=== PATIENT | male | born 1960 | race Caucasian/White ===

== ENCOUNTER 2018-04-02 06:48 | Inpatient (IN) | payer BC ==
[~2018-04-02] VITALS: Ht 185.4 cm; Wt 120.2 kg
[~2018-04-02 06:48] MED LIST: AMOX250C PO; ASCO10007 PO; CALC600T12 PO; CHOL20006 PO; COLE3.75 PO; FENO134C PO; GABA600T2 PO; GLIM4TAB2 PO; LIRA0.6P2 SUBCUT; METF10004 PO; MULT-585 PO; MULT1CAP34 PO; NIAC10002 PO; TOPI50TA PO; VALS1TAB54 PO; VASCEPA PO
[2018-04-02 08:00] VITALS: BP 130/72
[2018-04-02] MEDS ORDERED: DULA1.5P SQ (08:32)
[2018-04-02] MEDS ORDERED: AMOX500C2 PO (08:32)
[2018-04-02] MEDS ORDERED: ASPI-1169 PO (08:32)
[2018-04-02] MEDS ORDERED: CHOL50004 PO (08:32)
[2018-04-02] MEDS ORDERED: DAPA1TAB3 PO (08:32)
[2018-04-02] MEDS ORDERED: EVOL140S SQ (08:32)
[2018-04-02] MEDS ORDERED: GABA800T2 PO (08:32)
[2018-04-02] MEDS ORDERED: LOSA100T15 PO (08:32)
[2018-04-02] MEDS ORDERED: PIOG15TA8 PO (08:32)
[2018-04-02] MEDS ORDERED: IV NS 0.9% 1,000 ML IV PRN (10:22)
[2018-04-02] MEDS ORDERED: ONDANSETRON HCL/PF 4 MG/2 ML VIAL IVP PRN ×2 (10:30→16:30)
[2018-04-02] MEDS ORDERED: MISCELLANEOUS MED 1 EA EA XX ONE (10:30)
[2018-04-02] MEDS ORDERED: ACETAMINOPHEN 325 MG TABLET PO PRN (10:30)
[2018-04-02] MEDS ORDERED: ACETAMINOPHEN 650 MG/20.3 ML UDC NG ONE (10:30)
[2018-04-02] MEDS ORDERED: MAGNESIUM HYDROXIDE 30 ML UDC PO PRN (10:30)
[2018-04-02] MEDS ORDERED: MAG HYDROX/AL HYDROX/SIMETH 30 ML UDC PO PRN (10:30)
[2018-04-02] MEDS ORDERED: CELECOXIB 100 MG CAPSULE PO ONE (10:58)
[2018-04-02] MEDS ORDERED: oxyCODONE HCL SR 10MG TAB.SR.12H PO ONE (10:58)
[2018-04-02] MEDS ORDERED: MORPHINE SULFATE INJ 4 MG/ML DISP.SYRIN IV PRN (11:30)
[2018-04-02] MEDS ORDERED: ACETAMINOPHEN 650 MG/20.3 ML UDC PO ONE (11:30)
[2018-04-02 11:45] LABS: CALCIUM, SERUM 7.8 mg/dL (8.5-10.1); CREATININE 0.7 mg/dL (0.6-1.3); POTASSIUM 3.5 mmol/L (3.5-5.1)
[2018-04-02] MEDS ORDERED: ENOXAPARIN SODIUM 40 MG/0.4 ML DISP.SYRIN SQ SCH (13:15)
[2018-04-02] MEDS ORDERED: BACITRACIN 50000 UNITS/VIAL ONE (14:04)
[2018-04-02] MEDS ORDERED: DEXTROSE 50%-WATER 50 ML DISP.SYRIN IV PRN (14:30)
[2018-04-02] MEDS ORDERED: TRANEXAMIC ACID 3,000 MG in SODIUM CHLORIDE IRRIG SOLUTION 70 ML IR ONE (14:30)
[2018-04-02] MEDS ORDERED: HYDROMORPHONE INJ 2 MG/ML DISP.SYRIN ONE ×2 (15:11→16:14)
[2018-04-02] MEDS ORDERED: SEVOFLURANE 250 ML BOTTLE IH ONE (15:11)
[2018-04-02] MEDS ORDERED: BUPIVACAINE 0.5 % PF 150 MG/30 ML VIAL ONE (15:39)
[2018-04-02] MEDS ORDERED: HYDROCODONE/APAP 5/325MG 1 EACH TABLET PO PRN (16:30)
[2018-04-02] MEDS ORDERED: HYDROMORPHONE 1 MG/1 ML DISP.SYRIN IV PRN (16:30)
[2018-04-02 17:00] VITALS: BP 129/86
[2018-04-02] MEDS ORDERED: DOCUSATE SODIUM 250 MG CAPSULE PO SCH (17:00)
[2018-04-02] MEDS ORDERED: GABAPENTIN 400 MG CAPSULE PO SCH (17:00)
[2018-04-02] MEDS: BLOOD SUGAR DIAGNOSTIC 1 EACH STRIP IN SCH ×2 (17:58→21:52)
[2018-04-02] MEDS: INSULIN REGULAR, HUMAN 100 UNIT/ML 3 ML VIAL SQ PRN ×2 (18:01→22:05)
[2018-04-02] MEDS ORDERED: HYDROMORPHONE 1 MG/1 ML DISP.SYRIN SQ ONE (18:12)
[2018-04-02] MEDS ORDERED: diphenhydrAMINE HCL 25 MG CAPSULE PO PRN (18:30)
[2018-04-02] MEDS ORDERED: oxyCODONE IR immediate release 5 MG PO PRN ×2 (18:30)
[2018-04-02] MEDS ORDERED: CLONIDINE HCL 0.1 MG TABLET PO PRN (18:30)
[2018-04-02] MEDS: IV LR 1000 ML 1,000 ML IV PRN (19:30)
[2018-04-02 20:00] VITALS: BP 139/82
[2018-04-02] MEDS: FAMOTIDINE (20 MG) 20 MG TABLET PO SCH (21:51)
[2018-04-02] MEDS ORDERED: BISACODYL SUPP (10 MG) 10 MG/SUPP.RECT SUPP.RECT RC PRN (22:00)
[2018-04-02] MEDS ORDERED: TOPIRAMATE 25 MG TABLET PO SCH (22:00)
[2018-04-02] MEDS ORDERED: SENNOSIDES 8.6 MG TABLET PO SCH ×2 (22:00)
[2018-04-02] MEDS ORDERED: ZOLPIDEM TARTRATE 5 MG TABLET PO PRN (22:00)
[2018-04-02] MEDS ORDERED: GABAPENTIN 300 MG CAPSULE PO SCH (22:00)
[2018-04-02] MEDS: HYDROMORPHONE 1 MG/1 ML DISP.SYRIN SQ PRN (22:12)
[2018-04-02] MEDS: ANCEF 1 GM/50 ML D5W IV SCH ×2 (22:46)
[2018-04-03] VITALS: BP 120/75
[2018-04-03 05:00] VITALS: BP 116/64
[2018-04-03] MEDS: ANCEF 1 GM/50 ML D5W IV SCH ×2 (05:55)
[2018-04-03] MEDS: IV LR 1000 ML 1,000 ML IV PRN (06:02)
[2018-04-03] MEDS: BLOOD SUGAR DIAGNOSTIC 1 EACH STRIP IN SCH ×2 (06:26→11:41)
[2018-04-03] MEDS: INSULIN REGULAR, HUMAN 100 UNIT/ML 3 ML VIAL SQ PRN ×2 (06:28→11:59)
[2018-04-03 07:11] LABS: BASOPHILS % (AUTO) 0.3 % (0.0-2.0); EOSINOPHILS % (AUTO) 0.1 % (0.0-6.0); HEMATOCRIT 46 % (39-51); HEMOGLOBIN 14.6 g/dL (13.5-17.5); LYMPHOCYTES # (AUTO) 1.5 /CMM (0.8-4.8); LYMPHOCYTES % (AUTO) 12.9 % (20.0-44.0); MEAN CORPUSCULAR HEMOGLOBIN 30 PG (26.0-33.0); MEAN CORPUSCULAR HGB CONC 32 g/dl (31.0-36.0); MEAN CORPUSCULAR VOLUME 93 fL (80-96); MONOCYTES % (AUTO) 8.2 % (2.0-12.0); NEUTROPHILS # (AUTO) 9.2 /CMM (1.8-8.9); NEUTROPHILS % (AUTO) 78.5 % (43.0-81.0); PLATELET COUNT (AUTO) 209 /CMM (150-450); RED BLOOD CELL COUNT(AUTO) 4.96 MIL/uL (4.5-6.0); WHITE BLOOD COUNT (AUTO) 11.8 K/uL (4.3-11.0)
[2018-04-03 07:24] LABS: CALCIUM, SERUM 7.6 mg/dL (8.5-10.1); CREATININE 1.1 mg/dL (0.6-1.3); MAGNESIUM 2.2 mg/dL (1.8-2.4); PHOSPHORUS 3.2 mg/dL (2.5-4.9); POTASSIUM 3.9 mmol/L (3.5-5.1)
[2018-04-03 08:00] VITALS: BP 109/62
[2018-04-03] MEDS: FAMOTIDINE (20 MG) 20 MG TABLET PO SCH (08:21)
[2018-04-03 08:23] VITALS: BP 109/62
[2018-04-03] MEDS ORDERED: TOPIRAMATE 25 MG TABLET PO SCH (09:00)
[2018-04-03] MEDS ORDERED: DOCUSATE SODIUM 100 MG CAPSULE PO SCH (09:00)
[2018-04-03] MEDS ORDERED: ASPIRIN 325 MG TABLET PO SCH (09:00)
[2018-04-03] MEDS ORDERED: ASCORBIC ACID 500 MG TABLET PO SCH (09:00)
[2018-04-03] MEDS ORDERED: LOSARTAN POTASSIUM 50 MG TABLET PO SCH ×2 (09:00)
[2018-04-03] MEDS ORDERED: GABAPENTIN 400 MG CAPSULE PO SCH (09:00)
[2018-04-03] MEDS ORDERED: MULTIVITAMINS,THERAGRAN 1 UDTAB TABLET PO SCH (09:00)
[2018-04-03] MEDS ORDERED: ASPIRIN 81 MG TAB.CHEW PO SCH (09:00)
[2018-04-03] MEDS ORDERED: CHOLECALCIFEROL (VITAMIN D 3) 400 UNIT TABLET PO SCH (09:00)
[2018-04-03] MEDS ORDERED: PANTOPRAZOLE 40 MG VIAL IV SCH (09:00)
[2018-04-03] MEDS: HYDROMORPHONE 1 MG/1 ML DISP.SYRIN SQ PRN (13:46)
== END 2018-04-03 14:45 | disposition home health service (06) | DRG 468 ==
LOC: DS 06:48 → MED 06:58
PROVIDERS: ADMIT Specialist; ATTEND Specialist
DX: T84.84XA Pain due to internal orthopedic prosthetic devices, implants and grafts, initial encounter (principal); I10 Essential (primary) hypertension; K21.9 Gastro-esophageal reflux disease without esophagitis; Y83.1 Surgical operation with implant of artificial internal device as the cause of abnormal reaction of the patient, or of later complication, without mention of misadventure at the time of the procedure; Y92.009 Unspecified place in unspecified non-institutional (private) residence as the place of occurrence of the external cause; E66.9 Obesity, unspecified; F17.210 Nicotine dependence, cigarettes, uncomplicated; G43.909 Migraine, unspecified, not intractable, without status migrainosus; Z68.35 Body mass index [BMI] 35.0-35.9, adult; Z71.3 Dietary counseling and surveillance; I25.10 Atherosclerotic heart disease of native coronary artery without angina pectoris; E11.42 Type 2 diabetes mellitus with diabetic polyneuropathy; N40.0 Benign prostatic hyperplasia without lower urinary tract symptoms; M19.90 Unspecified osteoarthritis, unspecified site; Z79.84 Long term (current) use of oral hypoglycemic drugs
CPT/HCPCS: 36415; 80048-TC; 80061-TC; 82962-TC; 83735-TC; 84100-TC; 85025-TC; 87081-TC; 97110-TC; 97116-TC; 97530-TC; 97760-TC; A4217; A6253; A6402; J0690; J1100; J1170; J1815; J2405; J2704; J3490; J7030; J7060; J7120; Z7610